=== PATIENT | female | born 1985 | race Caucasian/White ===

== ENCOUNTER → 2020-01-20 14:18 | Outpatient (CLI) | payer BC, SELFPAY ==
[2020-01-20 14:56] LABS: Add Manual Diff / Slide Review NO; Basophils Absolute Auto 0 /uL (0-100); Basophils Percent Auto 0.3 % (0-2); Eosinophils Absolute Auto 100 /uL (0-450); Eosinophils Percent Auto 0.7 % (2-4); Hematocrit 39.3 % (36-46); Hemoglobin 13.7 g/dL (12.0-16.0); Lymphocytes Absolute Auto 2900 /uL (1100-4500); Lymphocytes Percent Auto 33.5 % (25-40); Mean Corpuscular Hemoglobin 30.5 PG (26-34); Mean Corpuscular Volume 87.3 fL (80-100); Monocytes Absolute Auto 400 /uL (0-900); Neutrophils Absolute Auto 5200 /uL (1500-7000); Neutrophils Percent Auto 60.5 % (50-75); Platelet Count 267 X10^3/uL (150-400); Red Cell Distribution Width 12.3 % (11.6-14.8); White Blood Cell Count 8.5 X10^3/uL (4.5-11.0)
[2020-01-20 15:29] LABS: Alanine Aminotransferase 35 IU/L (<35); Albumin Globulin Ratio 1.4 (1.0-2.8); Alkaline Phosphatase 54 U/L (38-126); Aspartate Aminotransferase 33 IU/L (14-36); BUN Creatinine Ratio 15.9 (6-22); Bilirubin Total 0.6 mg/dL (0.2-1.3); Blood Urea Nitrogen 11 mg/dL (7-17); Calcium 9.9 mg/dL (8.4-10.2); Carbon Dioxide 29 mmol/L (22-32); Chloride 102 mmol/L (98-107); Estimated Glomerular Filt Rate > 60.0 mL/min (>60); Globulin 3.7 g/dL (1.7-4.1); Glucose 98 mg/dL (70-100); HEMOLYSIS < 15 (0-50); Sodium 140 mmol/L (137-145); Total Protein 8.7 g/dL (6.3-8.2)
[2020-01-20 16:02] LABS: Vitamin D 25 Hydroxy (D3) 49.2 ng/mL (30.0-100.0)
[2020-01-20 16:12] LABS: TSH w/ Reflex to FT4 1.39 uIU/mL (0.47-4.68)
== END ==
PROVIDERS: PCP Family Medicine; Referring Provider Family Medicine; Visit Provider Family Medicine
DX: F41.1 Generalized anxiety disorder (principal); I10 Essential (primary) hypertension; R53.83 Other fatigue; E55.9 Vitamin D deficiency, unspecified
CPT/HCPCS: 36415; 80053; 82306; 84443; 85025

== ENCOUNTER → 2020-05-22 15:47 | Outpatient (CLI) | payer OTHER, SELFPAY ==
[2020-05-22 17:41] LABS: HCG Quantitative /Beta subunit 12.7 mIU/mL
== END ==
PROVIDERS: PCP Family Medicine; Referring Provider Obstetrics & Gynecology; Visit Provider Obstetrics & Gynecology
DX: O20.9 Hemorrhage in early pregnancy, unspecified (principal)
CPT/HCPCS: 36415; 84702; 86900; 86901

== ENCOUNTER → 2020-05-24 09:27 | Outpatient (CLI) | payer OTHER, SELFPAY ==
[2020-05-24 10:59] LABS: HCG Quantitative /Beta subunit < 2.4 mIU/mL
== END ==
PROVIDERS: PCP Family Medicine; Referring Provider Obstetrics & Gynecology; Visit Provider Obstetrics & Gynecology
DX: O20.9 Hemorrhage in early pregnancy, unspecified (principal)
CPT/HCPCS: 36415; 84702

== ENCOUNTER → 2020-12-11 09:09 | Outpatient (CLI) | payer BC, SELFPAY ==
[2020-12-11 11:24] LABS: HCG Quantitative /Beta subunit 302.7 mIU/mL
== END ==
PROVIDERS: PCP Family Medicine; Referring Provider Obstetrics & Gynecology; Visit Provider Obstetrics & Gynecology
DX: N92.6 Irregular menstruation, unspecified (principal); Z32.01 Encounter for pregnancy test, result positive
CPT/HCPCS: 36415; 84702

== ENCOUNTER → 2020-12-13 09:27 | Outpatient (CLI) | payer BC, SELFPAY ==
[2020-12-13 12:49] LABS: HCG Quantitative /Beta subunit 668.5 mIU/mL
== END ==
PROVIDERS: PCP Family Medicine; Referring Provider Obstetrics & Gynecology; Visit Provider Obstetrics & Gynecology
DX: N92.6 Irregular menstruation, unspecified (principal); Z32.01 Encounter for pregnancy test, result positive
CPT/HCPCS: 36415; 84702

== ENCOUNTER → 2021-01-25 09:10 | Outpatient (CLI) | payer BC, SELFPAY ==
[2021-01-25 10:14] LABS: Add Manual Diff / Slide Review NO; Basophils Absolute Auto 0 /uL (0-100); Basophils Percent Auto 0.1 % (0-2); Eosinophils Absolute Auto 100 /uL (0-450); Eosinophils Percent Auto 0.7 % (2-4); Hematocrit 38.2 % (36-46); Hemoglobin 12.7 g/dL (12.0-16.0); Lymphocytes Absolute Auto 2300 /uL (1100-4500); Lymphocytes Percent Auto 24.1 % (25-40); Mean Corpuscular HGB Conc 33.4 % (30-36); Mean Corpuscular Hemoglobin 30.1 PG (26-34); Mean Corpuscular Volume 90.4 fL (80-100); Monocytes Absolute Auto 400 /uL (0-900); Monocytes Percent Auto 4.2 % (3-14); Neutrophils Absolute Auto 6800 /uL (1500-7000); Neutrophils Percent Auto 70.9 % (50-75); Platelet Count 230 X10^3/uL (150-400); Red Blood Cell Count 4.22 X10^6/uL (4.0-5.2); Red Cell Distribution Width 12.4 % (11.6-14.8); White Blood Cell Count 9.6 X10^3/uL (4.5-11.0)
[2021-01-25 10:18] LABS: Appearance Urine UA CLEAR; Bilirubin Urine UA NEGATIVE (NEGATIVE); Color Urine UA YELLOW; Glucose Urine UA NEGATIVE (Negative); Ketones Urine UA NEGATIVE (NEGATIVE); Leukocyte Esterase Urine UA 1+ (NEGATIVE); Nitrite Urine UA NEGATIVE (Negative); Occult Blood Urine UA NEGATIVE (Negative); Protein Urine UA NEGATIVE (Negative); Specific Gravity Urine UA <=1.005 (1.000-1.035); Urobilinogen Urine UA 0.2 E.U./dL (0.2)
[2021-01-25 10:32] LABS: pH Urine UA 6.5 (4.5-8.0)
[2021-01-25 11:12] LABS: Bacteria Urine Few (2-10); RBC Urine 1-5/HPF (0-5/HPF); Squamous Epithelial Cell Urine 1-5 /HPF (0-5/HPF); WBC Urine 1-5/HPF (0-5/HPF)
[2021-01-25 20:56] LABS: Hepatitis B Surface Antigen NEGATIVE s/c (NEGATIVE); Rubella Antibody IgG 34.9 IU/mL (>15)
[2021-01-25 21:13] LABS: HIV 1 & 2 Ab/Ag 4th Gen Combo NEGATIVE (NEGATIVE); Hep C Virus Ab w/Reflex Quant NEGATIVE s/c (NEGATIVE)
[2021-01-26 08:11] LABS: RPR Screen Non Reactive (Non Reactive); Varicella IgG Antibody 1450 index (Immune >165)
== END ==
PROVIDERS: PCP Family Medicine; Referring Provider Obstetrics & Gynecology; Visit Provider Obstetrics & Gynecology
DX: O09.521 Supervision of elderly multigravida, first trimester (principal); Z36.0 Encounter for antenatal screening for chromosomal anomalies
CPT/HCPCS: 36415; 80055; 81003; 81015; 81420; 86787; 86803; 86850; 86870; 86900; 86901; 87077; 87086; 87389

== ENCOUNTER → 2021-03-06 14:00 | Outpatient (CLI) | payer BC, SELFPAY ==
[2021-03-08 19:55] LABS: AFP Value 42.8 ng/mL (.); Gest Age on Col Date 16.9 weeks (.); Insulin Dep Diabetes No (.); OSBR Risk 1IN 4803 (.); Results Report (.); Test Results *Screen Negative* (.)
== END ==
PROVIDERS: PCP Family Medicine; Referring Provider Obstetrics & Gynecology; Visit Provider Obstetrics & Gynecology
DX: Z34.82 Encounter for supervision of other normal pregnancy, second trimester (principal); Z3A.16 16 weeks gestation of pregnancy
CPT/HCPCS: 36415; 82105

== ENCOUNTER → 2021-04-03 12:19 | Outpatient (CLI) | payer BC, SELFPAY ==
--- NOTE | 2021-04-03 12:20 | DI.US.S_ITS ---
PROCEDURE: US OB >= 14 WEEKS FETUS INDICATIONS: ANATOMY SCAN OUTSIDE/PRIOR DATING DATA: Last menstrual period (LMP): 11/08/2020 . LMP-based estimated date of delivery (NILSON): 08/15/2021 . First dating scan (date and location): 01/09/2021 . Estimated date of delivery (NILSON) from first dating scan: 08/17/2021 . TECHNIQUE: Real-time scanning was performed of the fetus, with image documentation and biometric measurements. COMPARISON: [facility], , OB >= 14 WEEKS FETUS, 03/06/2021, 14:00. FINDINGS: General: A single living intrauterine gestation is present. Presentation: Cephalic. Placenta: Placental position is anterior , without previa. Amniotic fluid index: 14.8 cm, normal range is 5-24 cm. heart rate: 143 beats per minute. Maternal cervical canal: 4.7 cm long. Normal lower limit is 2.5 cm. biometrics: Biparietal diameter: 5.1 cm; 21 weeks 4 days Head circumference: 18.7 cm; 21 weeks 0 days Abdominal circumference: 15.9 cm; 21 weeks 0 days Femur length: 3.5 cm; 21 weeks 1 day Estimated gestational age from initial scan: not applicable. Composite gestational age from present scan: 21 weeks 1 day Estimated weight and percentile: 395 g, 71st percentile Measurement variability for biometric dating: +/- 7 days from 14 weeks to 15 weeks 6 days gestation, +/- 10 days from 16 weeks to 21 weeks 6 days gestation, +/- 2 weeks from 22 weeks to 27 weeks 6 days gestation, +/- 3 weeks for 28 weeks gestation or later. Anatomic survey: Neuro: Ventricles are non-dilated at less than 10 mm. Cisterna magna is normal at 3-11 mm. Cerebellum is normal in size and morphology. Nuchal skin fold: Normal at less than 6 mm between 14-21 weeks gestational age. Face: Not well seen Spine: No evidence for spina bifida. Heart: Not well seen Diaphragm: Diaphragm is intact. Stomach: Left-sided stomach is present. Kidneys: No hydronephrosis. Normal is less than 5 mm in 2nd trimester, less than 7 mm in 3rd trimester. Cord: 3-vessel cord has orthotopic insertion. Bladder: Normal in size. Extremities: All 4 extremities identified. IMPRESSION: 1. Single live intrauterine with a composite gestational age by initial ultrasound of 20 weeks 4 days. 2. Normal SHELBY. 3. Appropriate growth. 4. Heart and facial profile are not well seen due to position. Dictated by: Damion Villalobos M.D. on 04/03/2021 at 15:18 Approved by: Damion Villalobos M.D. on 04/03/2021 at 15:23
== END ==
PROVIDERS: PCP Family Medicine; Referring Provider Obstetrics & Gynecology; Visit Provider Obstetrics & Gynecology
DX: Z34.82 Encounter for supervision of other normal pregnancy, second trimester (principal); Z3A.21 21 weeks gestation of pregnancy
CPT/HCPCS: 76811

== ENCOUNTER → 2021-05-01 09:04 | Outpatient (CLI) | payer BC, SELFPAY ==
[2021-05-01 11:24] LABS: Hemoglobin 11.4 g/dL (12.0-16.0)
[2021-05-01 12:14] LABS: GTT (PREG) 1 Hour PP 50gm Dose 135 mg/dL (76-139)
== END ==
PROVIDERS: PCP Family Medicine; Referring Provider Obstetrics & Gynecology; Visit Provider Obstetrics & Gynecology
DX: Z34.82 Encounter for supervision of other normal pregnancy, second trimester (principal); Z3A.26 26 weeks gestation of pregnancy
CPT/HCPCS: 36415; 82950; 85014; 85018

== ENCOUNTER → 2021-05-25 12:41 | Outpatient (CLI) | payer BC, SELFPAY ==
[2021-05-25 12:53] LABS: Appearance Urine UA CLEAR; Bilirubin Urine UA NEGATIVE (NEGATIVE); Color Urine UA YELLOW; Glucose Urine UA NEGATIVE (Negative); Ketones Urine UA NEGATIVE (NEGATIVE); Leukocyte Esterase Urine UA NEGATIVE (NEGATIVE); Nitrite Urine UA NEGATIVE (Negative); Occult Blood Urine UA 3+ (Negative); Protein Urine UA NEGATIVE (Negative); Specific Gravity Urine UA <=1.005 (1.000-1.035); Urobilinogen Urine UA 0.2 E.U./dL (0.2)
[2021-05-25 12:54] LABS: pH Urine UA 6.5 (4.5-8.0)
[2021-05-25 13:01] LABS: Bacteria Urine Moderate (10-30); RBC Urine 1-5/HPF (0-5/HPF); Squamous Epithelial Cell Urine 1-5 /HPF (0-5/HPF); WBC Urine 1-5/HPF (0-5/HPF)
[2021-05-25 13:02] LABS: Culture Indicated Urine Specimen Cultured
== END ==
PROVIDERS: PCP Family Medicine; Referring Provider Obstetrics & Gynecology; Visit Provider Obstetrics & Gynecology
DX: N39.0 Urinary tract infection, site not specified (principal)
CPT/HCPCS: 81003; 81015; 87086

== ENCOUNTER 2021-07-09 15:28 | Outpatient (CLI) | payer BC, SELFPAY ==
--- NOTE | 2021-07-15 09:31 | PM.CALLCOV.1 ---
Call Coverage Note Note Date of Patient Contact: 07/13/21 Time of Patient Contact: 18:45 Narrative of Care Provided: Billy called c/o persistently elevated BPs x 24 hours despite labetalol 100mg BID. BPs range 120-140's/80-90's, variably elevated systolic and diastolic. Current BP 140's/80's despite labetalol dose 1 hour ago. No HOLMAN, vision changes, RUQ pain or increased edema. +FM. Recommend increasing to labetalol 200mg BID and call back if BPs remain elevated. Reviewed warning sx. Follow-up 07/16/21 for NST as previously scheduled.
== END 2021-07-09 16:07 | disposition home or self-care (01) ==
LOC: OB 07-11 07:11
PROVIDERS: PCP Family Medicine; Referring Provider Obstetrics & Gynecology; Visit Provider Obstetrics & Gynecology
DX: O13.3 Gestational [pregnancy-induced] hypertension without significant proteinuria, third trimester (principal); Z3A.34 34 weeks gestation of pregnancy
CPT/HCPCS: 59025; G0378; G0379

== ENCOUNTER 2021-07-16 08:48 | Outpatient (CLI) | payer BC, SELFPAY ==
[2021-07-16 09:26] LABS: Add Manual Diff / Slide Review NO; Basophils Absolute Auto 0 /uL (0-100); Basophils Percent Auto 0.3 % (0-2); Eosinophils Absolute Auto 100 /uL (0-450); Hematocrit 34.6 % (36-46); Hemoglobin 11.4 g/dL (12.0-16.0); Lymphocytes Absolute Auto 2100 /uL (1100-4500); Lymphocytes Percent Auto 22.8 % (25-40); Mean Corpuscular Hemoglobin 27.8 PG (26-34); Mean Corpuscular Volume 84.3 fL (80-100); Monocytes Absolute Auto 600 /uL (0-900); Monocytes Percent Auto 6.5 % (3-14); Neutrophils Absolute Auto 6400 /uL (1500-7000); Neutrophils Percent Auto 69.4 % (50-75); Platelet Count 169 X10^3/uL (150-400); Red Cell Distribution Width 14.7 % (11.6-14.8); White Blood Cell Count 9.2 X10^3/uL (4.5-11.0)
[2021-07-16 09:37] LABS: Aspartate Aminotransferase 22 IU/L (14-36); BUN Creatinine Ratio 18.2 (6-22); Blood Urea Nitrogen 8 mg/dL (7-17); Estimated Glomerular Filt Rate > 60.0 mL/min (>60); Uric Acid 4.7 mg/dL (2.5-6.2)
== END 2021-07-16 09:43 | disposition home or self-care (01) ==
LOC: OB 07-17 03:48
PROVIDERS: PCP Family Medicine; Referring Provider Obstetrics & Gynecology; Visit Provider Obstetrics & Gynecology
DX: O36.8130 Decreased fetal movements, third trimester, not applicable or unspecified (principal); O10.913 Unspecified pre-existing hypertension complicating pregnancy, third trimester; Z3A.35 35 weeks gestation of pregnancy
CPT/HCPCS: 59025; 84450; 84550; 85025; G0378; G0379

== ENCOUNTER 2021-07-23 10:15 | Outpatient (CLI) | payer BC, SELFPAY ==
[2021-07-23 11:06] VITALS: BP 131/85; PULSE 83; RESP 20; TEMP 36.1
--- NOTE | 2021-08-12 17:43 | P.TNLD_ITS ---
Visit Information Visit Information Date of evaluation: 07/23/21 Primary OB Provider: Socorro Aguirre On-call OB Provider: Socorro Aguirre Reason for Evaluation: Yes non-stress test non-stress test reason: hypertension/pre-eclampsia [facility] Medical History AMA (advanced maternal age) multigravida 35+ Class 1 obesity Preeclampsia Rosacea (~2014) Vaginal delivery (~10/16/14) Surgical History No history of previous surgery (12/04/15) Family History Grandfather Diabetes mellitus Hypertension High cholesterol Mother Age: 63 Hypertension High cholesterol Heavy smoker Grandmother Old age Father Quit smoking Grandmother Old age CVA (cerebral vascular accident) Grandfather Family estrangement Sister ADD (attention deficit disorder) Sister No problems noted. Social History marital status: number of children: 1 household members: spouse and children lives independently: Yes pets and animals: Yes (X 1 dog and X 1 cat (mainly outdoor) and X 1 bunny rabbit) education level: college (some College ) occupational status: unemployed current occupational exposures/hazards: No special gage needs: No Smoking Status: Never smoker second hand exposure: No alcohol intake: never substance use type: does not use Evaluation Evaluation Baseline heart rate: 145 Variability: Moderate (11-25) monitor accelerations: Present Monitor Decelerations: Absent Diagnosis, Plan/Disposition Plan/Disposition Plan: Assessment: 36+5 wks gestation Hypertension Reactive NST Plan: FKC's discussed F/U 3 days
== END 2021-07-23 11:00 | disposition home or self-care (01) ==
LOC: OB 07-25 11:40
PROVIDERS: PCP Family Medicine; Referring Provider Obstetrics & Gynecology; Visit Provider Obstetrics & Gynecology
DX: O13.3 Gestational [pregnancy-induced] hypertension without significant proteinuria, third trimester (principal); Z3A.36 36 weeks gestation of pregnancy
CPT/HCPCS: 59025; 87653; G0378; G0379

== ENCOUNTER → 2021-07-23 11:54 | Outpatient (CLI) | payer BC, SELFPAY ==
[2021-07-24 18:32] LABS: Strep Grp B PCR POS for Grp B Strep
== END ==
PROVIDERS: PCP Family Medicine; Visit Provider Obstetrics & Gynecology
DX: Z34.83 Encounter for supervision of other normal pregnancy, third trimester (principal); Z3A.36 36 weeks gestation of pregnancy
CPT/HCPCS: 87653

== ENCOUNTER 2021-07-27 08:36 | Inpatient (IN) | payer BC, SELFPAY ==
[2021-07-27] MEDS: LACTATED RINGERS 2,000 ML 1000 ML IV (10:30)
[2021-07-27 10:32] LABS: Add Manual Diff / Slide Review NO; Basophils Absolute Auto 0 /uL (0-100); Basophils Percent Auto 0.2 % (0-2); Eosinophils Absolute Auto 0 /uL (0-450); Eosinophils Percent Auto 0.5 % (2-4); Hematocrit 34.5 % (36-46); Hemoglobin 11.4 g/dL (12.0-16.0); Lymphocytes Absolute Auto 1600 /uL (1100-4500); Mean Corpuscular HGB Conc 33.1 % (30-36); Mean Corpuscular Volume 84.4 fL (80-100); Monocytes Absolute Auto 400 /uL (0-900); Monocytes Percent Auto 4.6 % (3-14); Neutrophils Absolute Auto 6500 /uL (1500-7000); Neutrophils Percent Auto 75.7 % (50-75); Platelet Count 181 X10^3/uL (150-400); Red Blood Cell Count 4.08 X10^6/uL (4.0-5.2); Red Cell Distribution Width 14.4 % (11.6-14.8); White Blood Cell Count 8.6 X10^3/uL (4.5-11.0)
[2021-07-27 10:43] LABS: Alanine Aminotransferase 15 IU/L (<35); Albumin 3.8 g/dL (3.5-5.0); Albumin Globulin Ratio 1.3 (1.0-2.8); Alkaline Phosphatase 114 U/L (38-126); Aspartate Aminotransferase 22 IU/L (14-36); BUN Creatinine Ratio 15.1 (6-22); Bilirubin Total 0.6 mg/dL (0.2-1.3); Blood Urea Nitrogen 8 mg/dL (7-17); Calcium 9.1 mg/dL (8.4-10.2); Carbon Dioxide 22 mmol/L (22-32); Chloride 105 mmol/L (98-107); Estimated Glomerular Filt Rate > 60.0 mL/min (>60); Glucose 97 mg/dL (70-100); HEMOLYSIS < 15 (0-50); Lactate Dehydrogenase 353 U/L (313-618); Potassium 3.7 mmol/L (3.4-5.1); Sodium 135 mmol/L (137-145); Total Protein 6.8 g/dL (6.3-8.2); Uric Acid 4.9 mg/dL (2.5-6.2)
[2021-07-27 11:40] LABS: COVID19 - ADMIT (NP swab/PCR) Negative (Negative)
[2021-07-27 11:40] LABS: Creatinine Urine Random 91.3 mg/dL; Protein (Total) Urine Random 36 mg/dL (0-12); Protein Creatinine Ratio Urine 0.39 GRAM/24H
[2021-07-27 12:02] VITALS: BP 135/100
--- NOTE | 2021-07-27 13:13 | PM.OBHP.IH.1 ---
OB HPI Date/Time Date of admission: 07/27/21 Date Patient Seen: 07/27/21 Time Patient Seen: 09:45 History of Present Condition Chief complaint: OBSERVATION OF LABOR NILSON Calculator Estimated Delivery Date Method Current WG Current Estimate 08/15/21 LMP (Certain) 37w 2d Other Estimates 08/17/21 Ultrasound #1 37w 0d Estimated Gestational Age (weeks): 37+2 : 3 Para: 1 care: good care, initiated at week # (8), number of visits (10) and pounds weight gain (36#) Dating criteria OB: LMP confirmed by 1st trimester US Ultrasounds: normal 1st trimester US and normal mid trimester US Obstetrical complications: preeclampsia and gestational hypertension Indications Operative indications ( section): preeclampsia (Pt choice to not be induced due to previous experience) Preadmission Labs Last OB Lab Results: Blood Type B Positive 01/25/21 09:31 01/25/21 Antibody Screen Positive 01/25/21 09:31 01/25/21 Hematocrit 34.5 % (36-46) L 07/27/21 09:33 07/27/21 Hemoglobin 11.4 g/dL (12.0-16.0) L 07/27/21 09:33 07/27/21 Hepatitis B Surface Antigen Negative s/c (NEGATIVE) 01/25/21 09:31 01/25/21 Hepatitis C Antibody Negative s/c (NEGATIVE) 01/25/21 09:31 01/25/21 Rubella Antibody 34.9 IU/mL (>15) 01/25/21 09:31 01/25/21 Varicella-Zoster IgG Antibody 1450 index (Immune >165) 01/25/21 09:31 01/25/21 Glucose 1 Hour 135 mg/dL (76-139) 05/01/21 09:10 05/01/21 Group B Streptococcus (PCR) Pos for grp b strep H 07/23/21 11:54 07/23/21 -: Chlamydia screen: negative, Gonorrhea screen: negative and Urine: negative -: PAP smear: Normal Genetic Screens: Cell-free DNA: Normal and Alpha-fetoprotein: Normal External Labs -: Urine: negative Prior (ies) Past Pregnancies Del. Date GA/Weeks Labor Lgth Wt Sex Route Outcome Anesthesia Place Delv Breastfeed Preg Comp Name 10/16/14 37.2 30 6 lb 6 oz Female vaginal live - full term epidural [facility] : Dr York Attempt - unsuccessful induced hyper- other [place] 05/22/20 5 spontaneous [place] spontaneous Delivery Date: 10/16/14 Last Updated by: Nola Hui R.N. *Pre-ecclampsia : bed rest X 1 month with induction at 37 weeks *Per patient : I pushed for 4 hours she was lino-side up. *Magnesium drip immediately PP. *PP : good support. Delivery Date: 05/22/20 Last Updated by: Nola Hui R.N. *? chemical : bled for X 5 with cramping. Evaluation Evaluation Baseline heart rate: 135 Variability: Moderate (11-25) monitor accelerations: Present Monitor Decelerations: Absent Contraction Frequency (minutes): 6 Uterine Contraction Intensity: Mild Status: Category l Dilation (cm): 1 Effacement (%): 25 Position of cervix: posterior Consistency: firm [facility] Medical History AMA (advanced maternal age) multigravida 35+ Class 1 obesity Preeclampsia Rosacea (~2014) Vaginal delivery (~10/16/14) Surgical History No history of previous surgery (12/04/15) Family History Grandfather Diabetes mellitus Hypertension High cholesterol Mother Age: 63 Hypertension High cholesterol Heavy smoker Grandmother Old age Father Quit smoking Grandmother Old age CVA (cerebral vascular accident) Grandfather Family estrangement Sister ADD (attention deficit disorder) Sister No problems noted. Social History marital status: number of children: 1 household members: spouse and children lives independently: Yes pets and animals: Yes (X 1 dog and X 1 cat (mainly outdoor) and X 1 bunny rabbit) education level: college (some College ) occupational status: unemployed current occupational exposures/hazards: No special gage needs: No Smoking Status: Never smoker second hand exposure: No alcohol intake: never substance use type: does not use Meds Home Medications and Allergies Home Medications Medication Instructions Recorded Confirmed Type prenat.vits,maikel,tnc-ikrk-mehuy 1 tab PO DAILY 01/02/21 07/23/21 History labetalol 100 mg tablet 100 mg PO BID #180 tab 01/09/21 07/23/21 Rx fluconazole 150 mg tablet 150 mg PO ONCE #1 tab 01/12/21 07/23/21 Rx (Diflucan) pantoprazole 40 mg tablet,delayed 40 mg PO DAILY #30 tab 03/25/21 07/23/21 Rx release (Protonix) Allergies Allergy/AdvReac Type Severity Reaction Status Date / Time MONOSODIUM GLUTAMATE Allergy Mild headache Uncoded 07/23/21 11:12 OB Exam Narrative Exam Narrative: Generally: Patient lying in bed, on left side, in mild distress secondary to right flank pain Lungs: Clear to auscultation bilaterally Cardiovascular: Regular rate and rhythm Fundal height: 39 cm Estimated weight: 7 lb Extremities: 1+ edema, 1+ DTRs Objective Labs Result Diagrams: 07/27/21 09:33 07/27/21 09:33 Labs: Laboratory Results - last 24 hr 07/27/21 07/27/21 07/27/21 09:33 09:33 09:33 WBC 8.6 RBC 4.08 Hgb 11.4 L Hct 34.5 L MCV 84.4 MCH 28.0 MCHC 33.1 RDW 14.4 Plt Count 181 Neut % (Auto) 75.7 H Lymph % (Auto) 19.0 L [place] % (Auto) 4.6 Eos % (Auto) 0.5 L Baso % (Auto) 0.2 Neut # (Auto) 6500 Lymph # (Auto) 1600 [place] # (Auto) 400 Eos # (Auto) 0 Baso # (Auto) 0 Sodium 135 L Potassium 3.7 Chloride 105 Carbon Dioxide 22 BUN 8 Creatinine 0.53 Estimated GFR > 60.0 BUN/Creatinine Ratio 15.1 Glucose 97 Uric Acid 4.9 Calcium 9.1 Total Bilirubin 0.6 AST 22 ALT 15 Alkaline Phosphatase 114 Lactate Dehydrogenase 353 Total Protein 6.8 Albumin 3.8 Globulin 3.0 Albumin/Globulin Ratio 1.3 U Random Total Protein 36 H Urine Creatinine 91.3 Protein/Creatinin Ratio 0.39 SARS-CoV-2 (PCR) 07/27/21 10:15 WBC RBC Hgb Hct MCV MCH MCHC RDW Plt Count Neut % (Auto) Lymph % (Auto) [place] % (Auto) Eos % (Auto) Baso % (Auto) Neut # (Auto) Lymph # (Auto) [place] # (Auto) Eos # (Auto) Baso # (Auto) Sodium Potassium Chloride Carbon Dioxide BUN Creatinine Estimated GFR BUN/Creatinine Ratio Glucose Uric Acid Calcium Total Bilirubin AST ALT Alkaline Phosphatase Lactate Dehydrogenase Total Protein Albumin Globulin Albumin/Globulin Ratio U Random Total Protein Urine Creatinine Protein/Creatinin Ratio SARS-CoV-2 (PCR) Negative Assessment and Plan Assessment and Plan Assessment and Plan narrative: Assessment: 36-year-old 3 para 1 at 37 and 2 seventh weeks gestation with hypertension with superimposed preeclampsia Patient had a very long first induction of labor. She would like to proceed with primary Plan: Primary low-transverse section The risks, benefits, and alternatives to the procedure were explained to the patient. The risks including bleeding, infection, injury to the bowel, bladder, or ureters. She understands these risks and agrees to proceed. A full par Q was held and consent form was signed. She also understands that she would need to have a no other section with a subsequent . Time Spent with Patient Total time spent with greater than 50% in coordination of care (as documented) at patient's floor/unit and/or counseling patient:: 15-24 minutes
--- NOTE | 2021-07-27 13:22 | PM.PREOP ---
Pre-operative Note COVID-19 COVID-19 status: Negative Result date/Date tested (Pos, Neg/Pending): 07/27/21 Interval Note History & Physical reviewed/Exam performed by Physician: Yes Changes to H&P: No H&P completed within 30 days and has changed as indicated here:: 07/27/21
[2021-07-27] MEDS: CEFAZOLIN 2 GM/20 ML SYRINGE IV (13:50)
--- NOTE | 2021-07-27 13:55 | SUR.OPER ---
Supine on Padded OR bed, head on pillow, safety belt at thigh, arms secured on padded arm boards at <90 degrees abduction. Bump under right buttock. Legs uncrossed with pillow under knees, gel pad to heels, tape over blanket to lower legs.
[2021-07-27] MEDS: LACTATED RINGERS 1,000 ML 100 ML IV ×2 (14:00→17:42)
[2021-07-27 14:02] LABS: Add Manual Diff / Slide Review NO; Basophils Absolute Auto 0 /uL (0-100); Basophils Percent Auto 0.3 % (0-2); Eosinophils Absolute Auto 0 /uL (0-450); Eosinophils Percent Auto 0.5 % (2-4); Hematocrit 35.1 % (36-46); Hemoglobin 11.5 g/dL (12.0-16.0); Lymphocytes Absolute Auto 1800 /uL (1100-4500); Lymphocytes Percent Auto 17.8 % (25-40); Mean Corpuscular HGB Conc 32.9 % (30-36); Mean Corpuscular Hemoglobin 27.8 PG (26-34); Mean Corpuscular Volume 84.7 fL (80-100); Monocytes Absolute Auto 400 /uL (0-900); Monocytes Percent Auto 4.3 % (3-14); Neutrophils Absolute Auto 7600 /uL (1500-7000); Neutrophils Percent Auto 77.1 % (50-75); Platelet Count 183 X10^3/uL (150-400); Red Blood Cell Count 4.14 X10^6/uL (4.0-5.2); Red Cell Distribution Width 14.7 % (11.6-14.8); White Blood Cell Count 9.9 X10^3/uL (4.5-11.0)
--- NOTE | 2021-07-27 14:17 | SUR.OPER ---
Viable male delivered via section at 14:12. Cord blood vials x2 and placenta sent with L&D RN.
[2021-07-27 14:47] VITALS: BP 93/75; PULSE 82; RESP 15; TEMP 36.4; O2SAT 99
[2021-07-27 14:52] VITALS: BP 109/67; PULSE 78; RESP 12; O2SAT 99
[2021-07-27 14:57] VITALS: BP 110/64; PULSE 72; RESP 16; O2SAT 99
--- NOTE | 2021-07-27 15:04 | PM.OBCS.1 ---
Operative Date/Time/Diagnoses Date of procedure: 07/27/21 Time of procedure: 15:04 Pre-op diagnosis: Intrauterine at 37 and 2 seventh weeks gestation Chronic hypertension with superimposed preeclampsia Patient desires elective primary section Post-op diagnosis: same Procedure & Clinicians Procedure: Primary low-transverse section Same procedure as scheduled: Yes Indications: 37 and 2 seventh weeks gestation Chronic hypertension with superimposed preeclampsia Patient desires elective primary section Surgeon: Socorro Vincent Yes if Unassisted: No Cable Testers Helper: Gaye Squires Anesthesia Type: Spinal Operative Notes Findings: Live male infant in the AMANDA presentation Normal uterus, tubes, and ovaries Closure Type: primary Specimen(s): cord blood and placenta Intraoperative meds administered: Duramorph, Ketorolac and Pitocin Applied: Catheter (To continuous drainage) Estimated Blood Loss (mL): 650 Blood products transfused: none Procedure in detail: The patient was taken to the operating room where she was placed in the seated position. Spinal anesthesia was administered. She was then placed in the dorsal supine position with a leftward tilt. She was prepped and draped in the usual sterile fashion. A timeout was performed. After spinal analgesia was found to be adequate, a Pfannenstiel skin incision was made 2 fingerbreadths above the pubic symphysis and carried through to the underlying layer fascia. The fascia was nicked in the midline, and the incision extended bilaterally with the Wall scissors. The superior aspect of the fascial incision was grasped with a Yuridia clamps, elevated, and the underlying rectus muscles dissected off sharply and bluntly. Attention was then turned to the inferior aspect of this incision which in a similar fashion was grasped with a Worthington clamps, elevated, and the underlying rectus muscles dissected off sharply and bluntly. The rectus muscles were in the midline. The peritoneum was identified, grasped between 2 hemostats, and entered sharply with the Metzenbaum scissors. This incision was extended superiorly and inferiorly with good visualization of the bladder. The bladder blade was inserted. The vesicouterine peritoneum was identified, grasped with the pickup, and entered sharply with the Metzenbaum scissors. This incision was extended bilaterally, and the bladder flap was created digitally. The bladder blade was reinserted. The lower uterine segment was incised in a transverse fashion with the scalpel. Upon entering the amniotic sac there was a moderate amount of clear amniotic fluid. The infant's head was delivered without difficulty. The nose and mouth were suctioned with bulb suction. The remainder of the body delivered without difficulty. The cord was double clamped and cut after one minute. The was handed off to waiting RN and RT. The placenta was delivered manually. The uterus was cleared of all clots and debris. The uterine incision was repaired with #1 chromic in a running interlocking fashion, and a second layer the same suture was used for an imbricating layer. There was a small amount of bleeding in the midline of the incision and a [id number] suture was placed for hemostasis. Hemostasis was achieved. The tubes and ovaries were examined and were found to be normal. The gutters were cleared of all clots and debris. The bladder flap was reapproximated using 2-0 Vicryl in a running fashion. The parietal peritoneum was closed using 2-0 Vicryl in a running fashion. The fascia was reapproximated using 0 Vicryl in a running fashion. Subcutaneous layer was copiously irrigated with warm normal saline. 5 simple interrupted sutures of 3-0 Vicryl were placed to reapproximate the subcutaneous layer. The skin was closed with 4-0 monocryl in a subcuticular fashion. Steri-Strips were placed. An Aquacel dressing was placed. The uterus was expressed of a small amount of old blood. Sponge, lap, and instrument counts were correct x-2. The patient tolerated the procedure well, and was taken to PACU in stable condition. Complications: none [place] Baby 1: Infant Gender: Male Presentation: vertex Position: Left Occiput Anterior Placental Delivery Description: Manual Removal Cord Vessel Description: 3 Vessels score (1 min): 7 score (5 min): 8 weight: 8 lb 1 oz Post-operative Condition: stable Disposition: PACU Aftercare: routine postop
[2021-07-27 15:23] VITALS: BP 113/71; PULSE 70; RESP 12; TEMP 36.4; O2SAT 100
[2021-07-27] MEDS: ONDANSETRON 4 MG/2 ML INJ IV ×2 (15:47→19:05)
[2021-07-27] MEDS: KETOROLAC 30 MG/ML VIAL IV (20:34)
[2021-07-28] MEDS: KETOROLAC 30 MG/ML VIAL IV (02:37)
[2021-07-28] MEDS: ACETAMINOPHEN 325 MG TABLET 650 MG PO ×2 (09:00→16:00)
[2021-07-28] MEDS: PRENATAL VIT,CALC/IRON/FOLIC 1 TABLET 1 TAB PO (09:00)
[2021-07-28] MEDS: DOCUSATE 100 MG CAPSULE 200 MG PO (10:36)
--- NOTE | 2021-07-28 10:55 | PM.OBPN.1 ---
Subjective - OB Subjective Patient comments: pain well controlled, tolerating diet and flatus present baby status: doing well Narrative: This patient is POD#1 s/p pCS on patient request in the setting of preeclampsia without severe features. The patient reports feeling well today with no HOLMAN, visual changes, chest pain, SOB, RUQ pain. GOod incisional pain control and moderate lochia. Date Patient Seen: 07/28/21 Time Patient Seen: 10:56 Exam Vital Signs (past 8 hours): 142/84, HR 96 Oxygen Delivery Method Nasal Cannula Narrative Exam Narrative: Patient well appearing, resting in bed with . Const General: cooperative, healthy appearing and comfortable Orientation: alert, awake and oriented x3 Resp Effort & Inspection: normal respiratory effort Auscultation: clear to auscultation bilaterally Cardio Rate: regular rate Rhythm: regular rhythm GI Palpation: soft and No tender Other: Fundus firm, 2 below. Incision c/d/i. Objective Labs Result Diagrams: 07/29/21 06:25 07/29/21 06:25 Labs: Laboratory Results - last 24 hr 07/27/21 07/27/21 07/27/21 09:33 10:15 10:15 WBC 9.9 RBC 4.14 Hgb 11.5 L Hct 35.1 L MCV 84.7 MCH 27.8 MCHC 32.9 RDW 14.7 Plt Count 183 Neut % (Auto) 77.1 H Lymph % (Auto) 17.[address] [place] % (Auto) 4.3 Eos % (Auto) 0.5 L Baso % (Auto) 0.3 Neut # (Auto) 7600 H Lymph # (Auto) 1800 [place] # (Auto) 400 Eos # (Auto) 0 Baso # (Auto) 0 U Random Total Protein 36 H Urine Creatinine 91.3 Protein/Creatinin Ratio 0.39 SARS-CoV-2 (PCR) Negative Blood Type Antibody Screen Antibody Identification 07/27/21 10:15 WBC RBC Hgb Hct MCV MCH MCHC RDW Plt Count Neut % (Auto) Lymph % (Auto) [place] % (Auto) Eos % (Auto) Baso % (Auto) Neut # (Auto) Lymph # (Auto) [place] # (Auto) Eos # (Auto) Baso # (Auto) U Random Total Protein Urine Creatinine Protein/Creatinin Ratio SARS-CoV-2 (PCR) Blood Type B Positive Antibody Screen Positive Antibody Identification Anti-M Assessment & Plan Plan day: 1 plan OB: routine postop care Comments: Repeat PIH labs pending, but patient otherwise doing well. Will continue to monitor BPs, start 100mg labetalol BID if elevated as patient more ambulatory. Precautions discussed. Anticipate d/c tomorrow. Time Spent With Patient Time: Total time spent is greater than 50% in coordination of care (as documented) at patient's floor/unit and/or counseling patient: Time with patient: 15-24 minutes
[2021-07-28 12:19] LABS: Add Manual Diff / Slide Review NO; Basophils Absolute Auto 0 /uL (0-100); Basophils Percent Auto 0.3 % (0-2); Eosinophils Absolute Auto 100 /uL (0-450); Eosinophils Percent Auto 0.4 % (2-4); Hematocrit 31.8 % (36-46); Hemoglobin 10.4 g/dL (12.0-16.0); Lymphocytes Absolute Auto 2000 /uL (1100-4500); Lymphocytes Percent Auto 15.4 % (25-40); Mean Corpuscular HGB Conc 32.8 % (30-36); Mean Corpuscular Hemoglobin 27.8 PG (26-34); Mean Corpuscular Volume 84.6 fL (80-100); Monocytes Absolute Auto 800 /uL (0-900); Monocytes Percent Auto 6.2 % (3-14); Neutrophils Absolute Auto 10100 /uL (1500-7000); Neutrophils Percent Auto 77.7 % (50-75); Platelet Count 205 X10^3/uL (150-400); Red Blood Cell Count 3.76 X10^6/uL (4.0-5.2); Red Cell Distribution Width 14.8 % (11.6-14.8)
[2021-07-28 12:39] LABS: Aspartate Aminotransferase 34 IU/L (14-36); BUN Creatinine Ratio 16.9 (6-22); Blood Urea Nitrogen 10 mg/dL (7-17); Estimated Glomerular Filt Rate > 60.0 mL/min (>60); Uric Acid 6.6 mg/dL (2.5-6.2)
[2021-07-28] MEDS: IBUPROFEN 600 MG TABLET PO (16:00)
[2021-07-28 20:31] VITALS: BP 135/90; PULSE 89
[2021-07-28] MEDS: LABETALOL 100 MG TABLET PO (20:31)
[2021-07-29] MEDS: ACETAMINOPHEN 325 MG TABLET 650 MG PO ×2 (01:06→07:40)
[2021-07-29] MEDS: IBUPROFEN 600 MG TABLET PO ×2 (01:06→07:39)
[2021-07-29 06:33] LABS: Add Manual Diff / Slide Review NO; Basophils Absolute Auto 0 /uL (0-100); Basophils Percent Auto 0.2 % (0-2); Eosinophils Absolute Auto 100 /uL (0-450); Eosinophils Percent Auto 0.9 % (2-4); Hematocrit 28.5 % (36-46); Hemoglobin 9.4 g/dL (12.0-16.0); Lymphocytes Absolute Auto 1900 /uL (1100-4500); Lymphocytes Percent Auto 18.6 % (25-40); Mean Corpuscular Hemoglobin 28.1 PG (26-34); Mean Corpuscular Volume 85.1 fL (80-100); Monocytes Absolute Auto 600 /uL (0-900); Monocytes Percent Auto 6.1 % (3-14); Neutrophils Absolute Auto 7800 /uL (1500-7000); Neutrophils Percent Auto 74.2 % (50-75); Platelet Count 186 X10^3/uL (150-400); Red Blood Cell Count 3.35 X10^6/uL (4.0-5.2); Red Cell Distribution Width 14.8 % (11.6-14.8); White Blood Cell Count 10.4 X10^3/uL (4.5-11.0)
[2021-07-29 06:41] VITALS: BP 122/86; PULSE 103; RESP 16; TEMP 36.8
[2021-07-29 06:45] LABS: Aspartate Aminotransferase 29 IU/L (14-36); Blood Urea Nitrogen 8 mg/dL (7-17); Estimated Glomerular Filt Rate > 60.0 mL/min (>60); Uric Acid 6.9 mg/dL (2.5-6.2)
[2021-07-29] MEDS: LANOLIN OINT 7 GM 1 APPLIC TOP (07:42)
[2021-07-29] MEDS: LABETALOL 100 MG TABLET PO (08:53)
[2021-07-29] MEDS: DOCUSATE 100 MG CAPSULE 200 MG PO (08:53)
[2021-07-29] MEDS: PRENATAL VIT,CALC/IRON/FOLIC 1 TABLET 1 TAB PO (08:53)
--- NOTE | 2021-07-29 10:07 | P.DS_ITS ---
Discharge Providers Provider Date of admission: 07/27/21 08:36 Discharge Date: 07/29/21 Primary care physician: Becki Spicer DO Consults: 07/27/21 15:06 Consult to Train Attendant Routine Comment: Discharge provider: Gaye Squires MD Summary Hospital Course Date Patient Seen: 07/29/21 Time Patient Seen: 10:07 Diagnoses: preeclampsia without severe features, primary section Hospital Course: This patient was admitted with worsening preeclampsia without severe features. Once decision was made to deliver, the patient requested a primary section. This was performed without complication, and the patient's recovery was uneventful. She was discharged on POD#2 with BPs well controlled on labetalol. Peripartum Data Delivery Method: Section Laceration Description: None complications: none 1: Gender: Male Disposition of : home Status at Discharge Cognitive/behavioral status at discharge: oriented Functional status at discharge: independent ambulation Overall status at discharge: patient is progressing back to baseline Time Spent with Patient Time attestation: Total time spent providing and/or coordinating discharge services: Objective Labs Result Diagrams: 07/29/21 06:25 07/29/21 06:25 Labs: Laboratory Results - last 24 hr 07/28/21 07/28/21 07/29/21 12:08 12:08 06:25 WBC 13.0 H 10.4 RBC 3.76 L 3.35 L Hgb 10.4 L 9.4 L Hct 31.8 L 28.5 L MCV 84.6 85.1 MCH 27.8 28.1 MCHC 32.8 33.0 RDW 14.8 14.8 Plt Count 205 186 Neut % (Auto) 77.7 H 74.2 Lymph % (Auto) 15.4 L 18.6 L [place] % (Auto) 6.2 6.1 Eos % (Auto) 0.4 L 0.9 L Baso % (Auto) 0.3 0.2 Neut # (Auto) 63923 H 7800 H Lymph # (Auto) 2000 1900 [place] # (Auto) 800 600 Eos # (Auto) 100 100 Baso # (Auto) 0 0 BUN 10 Creatinine 0.59 Estimated GFR > 60.0 BUN/Creatinine Ratio 16.9 Uric Acid 6.6 H AST 34 07/29/21 06:25 WBC RBC Hgb Hct MCV MCH MCHC RDW Plt Count Neut % (Auto) Lymph % (Auto) [place] % (Auto) Eos % (Auto) Baso % (Auto) Neut # (Auto) Lymph # (Auto) [place] # (Auto) Eos # (Auto) Baso # (Auto) BUN 8 Creatinine 0.57 Estimated GFR > 60.0 BUN/Creatinine Ratio 14.0 Uric Acid 6.9 H AST 29 Exam Vital Signs (past 8 hours): 120s-130s/80s on 100mg labetalol PO BID Oxygen Delivery Method Nasal Cannula Narrative Exam Narrative: Patient well appearing, ambulating without difficulty. Good pain control on minimal opioids. Voiding, passing flatus, tolerating PO, scant lochia. No HOLMAN or visual changes- HOLMAN this AM resolved with coffee. Const General: cooperative, healthy appearing and comfortable Orientation: alert, awake and oriented x3 Resp Effort & Inspection: normal respiratory effort Auscultation: clear to auscultation bilaterally Cardio Rate: regular rate Rhythm: regular rhythm GI Palpation: soft and No tender Other: fundus firm, below u. inicision c/d/i, covered by aquacell. Discharge Plan Discharge Plan Patient Disposition: Home Discharge orders & Medications Prescriptions: New oxycodone 5 mg tablet 5 mg PO Q6H PRN (Reason: pain) Qty: 20 0RF Rx Instructions: Take as often as every 6 hours for pain. Continued labetalol 100 mg tablet 100 mg PO BID Qty: 180 3RF fluconazole [Diflucan] 150 mg tablet 150 mg PO ONCE Qty: 1 0RF Rx Instructions: as a single dose pantoprazole [Protonix] 40 mg tablet,delayed release (DR/EC) 40 mg PO DAILY Qty: 30 3RF prenat.vits,maikel,[id number] Tablet 1 tab PO DAILY 0RF Follow up/Referrals: Socorro Aguirre MD [Physician] - 1 Week Becki Spicer DO [Primary Care Provider] - Diet/Activity/Treatments Diet: Regular Activity: Nothing in the vagina for 6 weeks. Avoid lifting more than 10 lbs for 6 weeks. If you have increasing pain, fevers, chills, bleeding, headaches, visual changes, nausea, vomiting, or any other symptoms or concerns, call or come to the emergency room. Skin/Wound/Dressing Care Report to your healthcare provider any signs of infection, such as:: chills, fever, night sweats and increased pain Dressing: keep area clean and dry. Bandage to be removed at 1 week appointment. Visit Report/Discharge Packet Instructions: DI for Discharge Data Primary Care Provider: Becki Spicer
== END 2021-07-29 13:07 | disposition home or self-care (01) | DRG 788 ==
PROVIDERS: Obstetrics & Gynecology; Admitting Provider Obstetrics & Gynecology; PCP Family Medicine; Referring Provider Obstetrics & Gynecology; Visit Provider Obstetrics & Gynecology
PROC: 10D00Z1 Extraction of Products of Conception, Low, Open Approach (ICD-10-PCS; CPT 59514; principal; 2021-07-27 12:45)
DX: O11.4 Pre-existing hypertension with pre-eclampsia, complicating childbirth (principal); O10.92 Unspecified pre-existing hypertension complicating childbirth; Z37.0 Single live birth; Z3A.37 37 weeks gestation of pregnancy; O99.824 Streptococcus B carrier state complicating childbirth; Z20.822 Contact with and (suspected) exposure to COVID-19
CPT/HCPCS: 36415; 59050; 59510; 59514; 80053; 82570; 83615; 84156; 84450; 84550; 85025; 86850; 86870; 86900; 86901; 87635; C9803; G0379; J0690; J1885; J2274; J2405; J2590

== ENCOUNTER → 2021-08-04 11:19 | Outpatient (CLI) | payer BC, SELFPAY ==
[2021-08-04 12:54] LABS: Appearance Urine UA CLEAR; Bilirubin Urine UA NEGATIVE (NEGATIVE); Color Urine UA YELLOW; Glucose Urine UA NEGATIVE (Negative); Ketones Urine UA NEGATIVE (NEGATIVE); Leukocyte Esterase Urine UA NEGATIVE (NEGATIVE); Nitrite Urine UA NEGATIVE (Negative); Occult Blood Urine UA 1+ (Negative); Protein Urine UA NEGATIVE (Negative); Urobilinogen Urine UA 0.2 E.U./dL (0.2)
[2021-08-04 13:07] LABS: Bacteria Urine Occasional (0-1); Culture Indicated Urine Cult Not Indicated; RBC Urine 1-5/HPF (0-5/HPF); Squamous Epithelial Cell Urine 1-5 /HPF (0-5/HPF); WBC Urine 1-5/HPF (0-5/HPF)
== END ==
PROVIDERS: PCP Family Medicine; Referring Provider Obstetrics & Gynecology; Visit Provider Obstetrics & Gynecology
DX: N39.0 Urinary tract infection, site not specified (principal)
CPT/HCPCS: 81003; 81015

== ENCOUNTER → 2022-08-21 15:43 | Outpatient (CLI) | payer BC, SELFPAY | PROVIDERS: PCP Family Medicine; Visit Provider Registered Nurse | DX: J02.9 Acute pharyngitis, unspecified (principal) | CPT/HCPCS: 87070 ==

== ENCOUNTER → 2022-11-05 09:01 | Outpatient (CLI) | payer BC, SELFPAY ==
[2022-11-05 10:51] LABS: HCG Quantitative /Beta subunit < 2.4 mIU/mL
== END ==
PROVIDERS: Obstetrics & Gynecology; PCP Family Medicine; Referring Provider Family Medicine; Visit Provider Family Medicine
DX: Z34.90 Encounter for supervision of normal pregnancy, unspecified, unspecified trimester (principal)
CPT/HCPCS: 36415; 84702

== ENCOUNTER → 2023-01-09 08:51 | Outpatient (CLI) | payer BC, SELFPAY ==
[2023-01-09 10:27] LABS: Alanine Aminotransferase 24 IU/L (<35); Albumin 4.9 g/dL (3.5-5.0); Albumin Globulin Ratio 1.7 (1.0-2.8); Alkaline Phosphatase 58 U/L (38-126); Aspartate Aminotransferase 22 IU/L (14-36); BUN Creatinine Ratio 18.5 (6-22); Bilirubin Total 0.8 mg/dL (0.2-1.3); Blood Urea Nitrogen 12 mg/dL (7-17); Calcium 9.4 mg/dL (8.4-10.2); Carbon Dioxide 26 mmol/L (22-32); Chloride 101 mmol/L (98-107); Cholesterol 202 mg/dL (140-199); Estimated Glomerular Filt Rate > 60 mL/min (>60); Globulin 2.9 g/dL (1.7-4.1); Glucose 95 mg/dL (70-100); HDL Cholesterol 51 mg/dL (40-60); HEMOLYSIS < 15 (0-50); LDL Cholesterol Calculated 136 mg/dL (<100); Sodium 137 mmol/L (137-145); Total Protein 7.8 g/dL (6.3-8.2); Triglycerides 74 mg/dL (35-150)
[2023-01-09 10:29] LABS: Add Manual Diff / Slide Review NO; Basophils Absolute Auto 0 /uL (0-100); Basophils Percent Auto 0.4 % (0-2); Eosinophils Absolute Auto 100 /uL (0-450); Eosinophils Percent Auto 1.3 % (2-4); Hematocrit 37.4 % (36-46); Hemoglobin 12.6 g/dL (12.0-16.0); Lymphocytes Absolute Auto 2200 /uL (1100-4500); Lymphocytes Percent Auto 28.7 % (25-40); Mean Corpuscular HGB Conc 33.8 % (30-36); Mean Corpuscular Hemoglobin 29.2 PG (26-34); Mean Corpuscular Volume 86.4 fL (80-100); Monocytes Absolute Auto 500 /uL (0-900); Monocytes Percent Auto 6.1 % (3-14); Neutrophils Absolute Auto 4900 /uL (1500-7000); Neutrophils Percent Auto 63.5 % (50-75); Platelet Count 252 X10^3/uL (150-400); Red Blood Cell Count 4.32 X10^6/uL (4.0-5.2); Red Cell Distribution Width 12.8 % (11.6-14.8); White Blood Cell Count 7.7 X10^3/uL (4.5-11.0)
== END ==
PROVIDERS: PCP Family Medicine; Referring Provider Physician Assistant; Visit Provider Physician Assistant
DX: R63.5 Abnormal weight gain (principal)
CPT/HCPCS: 36415; 80053; 80061; 85025